=== PATIENT | female | born 1955 | race Caucasian/White ===

== ENCOUNTER → 2023-05-10 08:58 | Outpatient (REF) | payer MEDICARE, OTHER, SELFPAY | LOC: RAD 08:58 | PROVIDERS: ATTENDING PHYSICIAN Internal Medicine Rheumatology; FAMILY PHYSICIAN Family Medicine; REFERRING PHYSICIAN Obstetrics & Gynecology | DX: M81.0 Age-related osteoporosis without current pathological fracture (principal) | CPT/HCPCS: 77080 ==

== ENCOUNTER → 2023-06-13 17:55 | Outpatient (REF) | payer MEDICARE, OTHER, SELFPAY | LOC: WDC 17:55 | PROVIDERS: ATTENDING PHYSICIAN Obstetrics & Gynecology | DX: Z12.31 Encounter for screening mammogram for malignant neoplasm of breast (principal) | CPT/HCPCS: 77063; 77067 ==

== ENCOUNTER → 2024-06-17 18:02 | Outpatient (REF) | payer MEDICARE, OTHER, SELFPAY | LOC: WDC 18:02 | PROVIDERS: ATTENDING PHYSICIAN Nurse Practitioner Family | DX: Z12.31 Encounter for screening mammogram for malignant neoplasm of breast (principal) | CPT/HCPCS: 77063; 77067 ==